=== PATIENT | female | born 1990 | race Caucasian/White ===

== ENCOUNTER 2021-12-23 11:47 | Inpatient (IN) | payer OTHER ==
[2021-12-23] MEDS ORDERED: AMPICILLIN 2,000 MG in SODIUM CHLORIDE 0.9% 100 ML IVPB STA (12:11)
[2021-12-23] MEDS ORDERED: TERBUTALINE 1 MG/ML VIAL SQ PRN (12:11)
[2021-12-23] MEDS ORDERED: CARBOPROST TROMETHAMINE 250 MCG/ML 1 ML AMP IM PRN (12:11)
[2021-12-23] MEDS ORDERED: OXYTOCIN 10 UNIT/ML 1 ML VIAL IM PRN (12:11)
[2021-12-23] MEDS ORDERED: LIDOCAINE 0.5% (PF) 5 MG/ML (50 ML SDV) SQ PRN (12:11)
[2021-12-23] MEDS ORDERED: METHYLERGONOVINE 0.2 MG/ML 1 ML AMP IM PRN (12:11)
[2021-12-23] MEDS ORDERED: BUTORPHANOL 1 MG/ML 1 ML VIAL IV PRN (12:14)
[2021-12-23] MEDS ORDERED: OXYTOCIN 30 UNITS/500 ML NS 30 UNIT in SALINE 1 500ML.BAG IV SCH ×2 (12:15→19:15)
[2021-12-23] MEDS: LACTATED RINGERS 1,000 ML IV SCH ×2 (12:41→16:07)
[2021-12-23 13:02] LABS: Basophils % (A) 0 %; Eosinophils % (A) 0 %; HCT 34.7 % (34.0-46.0); Hypochromasia Moderate; Lymphocytes % (A) 8 %; MCH 27.2 pg (25.0-35.0); MCHC 31.8 g/dL (31.0-37.0); MCV 85.6 fL (80.0-100.0); Mean Platelet Volume 9.5; Monocytes # (A) 0.6 k/uL (0-1.0); Monocytes % (A) 5 %; Neutrophils # (A) 10.5 k/uL (1.3-7.7); Neutrophils % (A) 84 %; Platelet Count 221 k/uL (150-450); RBC 4.05 m/uL (3.80-5.40); RDW 14.2 % (11.5-15.5); WBC 12.5 k/uL (3.8-10.6)
[2021-12-23] MEDS ORDERED: fentaNYL (PF) 50 MCG/ML 5 ML AMP ONE (15:53)
[2021-12-23] MEDS ORDERED: SODIUM CHLORIDE 0.9% 100 ML BAG ONE (15:53)
[2021-12-23] MEDS ORDERED: ROCURONIUM 10 MG/ML (5 ML VIAL) IV ONE (15:53)
[2021-12-23] MEDS ORDERED: AMPICILLIN 1,000 MG in SODIUM CHLORIDE 0.9% 50 ML IVPB SCH (16:15)
[2021-12-23] MEDS ORDERED: SIMETHICONE 80 MG CHEWABLE PO PRN (19:03)
[2021-12-23] MEDS ORDERED: LANOLIN CREAM 5 GM TUBE TOPICAL PRN (19:03)
[2021-12-23] MEDS ORDERED: HYDROCORTISONE 2.5% RECTAL CREAM 30 GM TUBE RECTAL PRN (19:03)
[2021-12-23] MEDS ORDERED: BENZOCAINE/MENTHOL SPRAY 1 GM/SPRAY AEROSOL TOPICAL PRN (19:03)
[2021-12-23] MEDS ORDERED: diphenhydrAMINE 25 MG CAP PO PRN (19:03)
[2021-12-23] MEDS ORDERED: ZOLPIDEM 5 MG TAB PO PRN (19:03)
[2021-12-23] MEDS ORDERED: diphenhydrAMINE 50 MG/ML 1 ML VIAL IVP PRN ×2 (19:03)
[2021-12-23] MEDS ORDERED: diphenhydrAMINE 50 MG CAP PO PRN (19:03)
--- NOTE | 2021-12-23 19:06 | P.HPOB ---
History of Present Illness H&P Date: 12/23/21 Chief Complaint: Spontaneous rupture of membranes 31-year-old presents at 38 weeks and 5 days with spontaneous rupture membranes at 9 AM. Fluid was noted to be clear and she was vicki every 3- 5 minutes. heart tones were 135 with moderate variability and reactive. Her cervix is dilated to 4-5 cm dilated, 80% effaced, -2 station. Review of Systems All systems: negative Constitutional: Denies chills, Denies fever Eyes: denies blurred vision, denies pain Ears, nose, mouth and throat: Denies headache, Denies sore throat Cardiovascular: Denies chest pain, Denies shortness of breath Respiratory: Denies cough Gastrointestinal: Denies abdominal pain, Denies diarrhea, Denies nausea, Denies vomiting Genitourinary: Denies dysuria, Denies hematuria Musculoskeletal: Denies myalgias Integumentary: Denies pruritus, Denies rash Neurological: Denies numbness, Denies weakness Psychiatric: Denies anxiety, Denies depression Endocrine: Denies fatigue, Denies weight change Past Medical History Past Medical History: No Reported History Additional Past Medical History / Comment(s): Social history: First was a vaginal delivery. This is her second she had care first with Dr. Wei and then with Dr. Mcclelland. Blood type is AB+, advised negative, rubella immune, hepatitis B negative, GBS positive, HIV nonreactive, RPR nonreactive. History of Any Multi-Drug Resistant Organisms: None Reported Past Surgical History: No Surgical Hx Reported Past Anesthesia/Blood Transfusion Reactions: No Reported Reaction Past Psychological History: No Psychological Hx Reported Smoking Status: Never smoker Past Alcohol Use History: Occasional Past Drug Use History: None Reported - Past Family History Father Family Medical History: No Reported History Medications and Allergies Home Medications Medication Instructions Recorded Confirmed Type Pnv,Calcium 72/Iron/Folic Acid 1 tab PO DAILY 06/05/16 12/23/21 History [ Plus Tablet] Allergies Allergy/AdvReac Type Severity Reaction Status Date / Time No Known Allergies Allergy Verified 11/17/21 18:08 Exam Osteopathic Statement: *. No significant issues noted on an osteopathic structural exam other than those noted in the History and Physical/Consult. Vital Signs Temp Pulse Resp BP Pulse Ox 12/23/21 13:00 97.0 F L 93 18 126/74 100 Intake and Output 12/23/21 12/23/21 12/23/21 06:59 14:59 22:59 Other: Weight 68.039 kg Heart: Regular rate and rhythm Lungs: Clear to auscultation bilaterally Abdomen: Soft, nontender Extremities: Negative Homans sign Results Result Diagrams: 12/23/21 12:58 Abnormal Lab Results - Last 24 Hours (Table) 12/23/21 Range/Units 12:58 WBC 12.5 H (3.8-10.6) k/uL Hgb 11.0 L (11.4-16.0) gm/dL Neutrophils # 10.5 H (1.3-7.7) k/uL Assessment and Plan (1) Spontaneous rupture of membranes Current Visit: Yes Status: Acute Code(s): NLX3453 - SNOMED Code(s): 111047487 (2) Group B streptococcal carriage complicating Current Visit: No Status: Acute Code(s): O99.820 - STREPTOCOCCUS B CARRIER STATE COMPLICATING SNOMED Code(s): 747424279662970 (3) 38 weeks gestation of Current Visit: Yes Status: Acute Code(s): Z3A.38 - 38 WEEKS GESTATION OF SNOMED Code(s): 41730672 Plan: 1. Admit to family place 2. Ampicillin for GBS prophylaxis 3. Anticipate normal vaginal delivery
--- NOTE | 2021-12-23 19:09 | P.PROBDLV ---
Vaginal Delivery Note - . Vaginal Delivery Note: 31-year-old presents at 38 weeks and 5 days with spontaneous rupture membranes at 9 AM. Fluid was noted to be clear and she was vicki every 3- 5 minutes. heart tones were 135 with moderate variability and reactive. Her cervix is dilated to 4-5 cm dilated, 80% effaced, -2 station. Patient was admitted to [facility] and given an epidural for pain control. She was started on ampicillin for GBS prophylaxis. Her cervix is completely dilated at 1828. She pushed, and delivered a viable female over intact perineum under epidural anesthesia at 1839. Head delivered OA, anterior shoulder delivered gentle downward guidance followed by posterior shoulder and rest of body. Nose and mouth bulb suctioned, placed mother's abdomen, cord was clamped and cut once it stop pulsing. Apgars 9, 10, weight 8 lbs. 2 oz. Placenta delivered spontaneously, intact with three-vessel cord at 1843. Vagina, cervix, perineum inspected. First-degree midline laceration and a left labial laceration were repaired with 3-0 Vicryl. Estimated blood loss 100 mL. Mother and baby in stable condition.
[2021-12-23] MEDS: SENNOSIDES-DOCUSATE SODIUM 1 EACH TAB PO SCH (20:01)
[2021-12-23] MEDS: IBUPROFEN 600 MG TAB PO PRN (22:07)
[2021-12-24] MEDS: ACETAMINOPHEN TAB 325 MG TAB PO PRN ×3 (04:02→19:28)
[2021-12-24] MEDS: SENNOSIDES-DOCUSATE SODIUM 1 EACH TAB PO SCH (08:04)
[2021-12-24] MEDS: IBUPROFEN 600 MG TAB PO PRN ×2 (08:04→14:12)
[2021-12-24 08:16] LABS: Basophils % (A) 0 %; Eosinophils # (A) 0.1 k/uL (0-0.7); Eosinophils % (A) 1 %; HGB 9.6 gm/dL (11.4-16.0); Hypochromasia Slight; Lymphocytes # (A) 1.7 k/uL (1.0-4.8); Lymphocytes % (A) 11 %; MCH 27.1 pg (25.0-35.0); MCV 84.7 fL (80.0-100.0); Mean Platelet Volume 9.8; Monocytes # (A) 0.9 k/uL (0-1.0); Monocytes % (A) 6 %; Neutrophils # (A) 12.8 k/uL (1.3-7.7); Neutrophils % (A) 82 %; Platelet Count 201 k/uL (150-450); RBC 3.54 m/uL (3.80-5.40); WBC 15.7 k/uL (3.8-10.6)
--- NOTE | 2021-12-24 09:15 | P.DS ---
Providers Date of admission: 12/23/21 12:09 Expected date of discharge: 12/24/21 Attending physician: Daryl Mcclelland Primary care physician: Stated None - Discharge Diagnosis(es) (1) Spontaneous rupture of membranes Current Visit: Yes Status: Resolved (2) Group B streptococcal carriage complicating Current Visit: No Status: Resolved (3) 38 weeks gestation of Current Visit: Yes Status: Resolved (4) Status post normal vaginal delivery Current Visit: Yes Status: Acute Hospital Course: Patient seen and examined. Denies nausea, vomiting, chest pain, sugars of breath or any calf pain. Her lochia is minimal. Patient will be discharged home day #1 in stable condition to follow-up with Dr. Mcclelland in 6 weeks. Plan - Discharge Summary New Discharge Prescriptions: New Ibuprofen [Motrin] 600 mg PO Q6HR PRN #30 tab PRN Reason: Mild Pain (Scale 1 To 3) No Action Pnv,Calcium 72/Iron/Folic Acid [ Plus Tablet] 1 tab PO DAILY Discharge Medication List Pnv,Calcium 72/Iron/Folic Acid [ Plus Tablet] 1 tab PO DAILY 06/05/16 [History] Ibuprofen [Motrin] 600 mg PO Q6HR PRN #30 tab 12/24/21 [Rx] Follow up Appointment(s)/Referral(s): Daryl Mcclelland MD [STAFF PHYSICIAN] - 6 Weeks Discharge Disposition: HOME SELF-CARE
[2021-12-24 16:59] VITALS: BP 100/62; PULSE 98; RESP 16; TEMP 98.5
== END 2021-12-24 19:39 | disposition home or self-care (01) | DRG 807 ==
LOC: FBPOP 11:47 → 4FBP 12:09
PROVIDERS: ADMIT Obstetrics & Gynecology; ATTEND Obstetrics & Gynecology
PROC: 10E0XZZ Delivery of Products of Conception, External Approach (ICD-10-PCS; principal; 2021-12-23)
PROC: 0HQ9XZZ Repair Perineum Skin, External Approach (ICD-10-PCS; 2021-12-23)
PROC: 0UQMXZZ Repair Vulva, External Approach (ICD-10-PCS; 2021-12-23)
DX: O42.92 Full-term premature rupture of membranes, unspecified as to length of time between rupture and onset of labor (principal); Z37.0 Single live birth; P03.5 Newborn affected by precipitate delivery; O70.0 First degree perineal laceration during delivery; O99.824 Streptococcus B carrier state complicating childbirth; Z3A.38 38 weeks gestation of pregnancy
CPT/HCPCS: 59025; 84112; 85025; 86850; 86900; 86901; 99213

== ENCOUNTER → 2024-09-18 | Outpatient (CLI) | payer OTHER ==
--- NOTE | 2024-09-18 12:29 | US ---
EXAMINATION TYPE: US pelvic complete DATE OF EXAM: 09/18/2024 COMPARISON: Prior ultrasounds CLINICAL INDICATION: Female, 33 years old with history of N93.9 ABNORMAL UTERINE AND VAGINAL BLEEDING , UNSPE; TECHNIQUE: Transabdominal (TA). FINDINGS: Date of LMP: 1 week ago EXAM MEASUREMENTS: Uterus: 8.7 x 3.5 x 4.4 cm Endometrial Stripe: 0.6 cm Right Ovary: 2.6 x 1.7 x 3.7 cm Left Ovary: 2.5 x 1.9 x 1.9 cm 1. Uterus: anteverted, wnl 2. Endometrium: appears wnl, no abnormal masses or polyps. 3. Right Ovary: multiple follicles 4. Left Ovary: multiple follicles 5. Bilateral Adnexa: wnl 6. Posterior cul-de-sac: free fluid IMPRESSION: 1. No evidence for acute process. 2. Endometrium is within normal limits. [facility], , 09/18/2024 12:26 PM
== END | disposition home or self-care (01) ==
LOC: RADUSWWP 09:45
PROVIDERS: ATTEND Family Medicine
DX: N93.9 Abnormal uterine and vaginal bleeding, unspecified (principal)
CPT/HCPCS: 76856